=== PATIENT | female | born 1990 | race Two or more races ===

== ENCOUNTER 2024-07-02 13:47 | Outpatient (CLI) | payer OTHER | END 2024-07-02 13:48 | disposition home or self-care (01) | LOC: PRENATAL 13:47 | PROVIDERS: ATTEND Obstetrics & Gynecology Maternal & Fetal Medicine | DX: O44.00 Complete placenta previa NOS or without hemorrhage, unspecified trimester (principal); O28.1 Abnormal biochemical finding on antenatal screening of mother; O09.529 Supervision of elderly multigravida, unspecified trimester; Z3A.22 22 weeks gestation of pregnancy ==

== ENCOUNTER 2024-09-23 09:51 | Outpatient (CLI) | payer OTHER | END 2024-09-23 09:53 | disposition home or self-care (01) | LOC: PRENATAL 09:51 | PROVIDERS: ATTEND Obstetrics & Gynecology Maternal & Fetal Medicine | DX: O26.849 Uterine size-date discrepancy, unspecified trimester (principal); O36.8199 Decreased fetal movements, unspecified trimester, other fetus; O28.1 Abnormal biochemical finding on antenatal screening of mother; O09.529 Supervision of elderly multigravida, unspecified trimester; Z3A.33 33 weeks gestation of pregnancy ==